=== PATIENT | female | born 1960 | race Caucasian/White ===

== ENCOUNTER 2018-06-15 21:25 | Inpatient (IN) | payer OTHER ==
[~2018-06-15] VITALS: Ht 162.6 cm; Wt 52.6 kg
[2018-06-15 22:12] LABS: UA SPECIFIC GRAVITY >=1.030 (1.005-1.035); microscopic required? YES; urine erythrocyte TRACE (NEGATIVE)
[2018-06-15 22:13] VITALS: BP 127/75
[2018-06-15 22:19] LABS: BASOPHIL % 0.3 % (0-2); PLATELET COUNT 328 x10^3mcL (130-400); RED CELL DISTRIBUTION WIDTH 14.3 % (11.5-14.5)
[2018-06-15 22:21] LABS: CALCIUM 9.2 mg/dL (8.5-10.1); CARBON DIOXIDE 21.6 mmol/L (21-32); CHLORIDE SERUM 115 mmol/L (98-107); CREATININE SERUM 2.7 mg/dL (0.6-1.0); GFR1 19 mL/min; GLUCOSE SERUM 103 mg/dL (74-106); POTASSIUM SERUM 4.1 mmol/L (3.5-5.1); SODIUM SERUM 147 mmol/L (136-145)
[2018-06-15 22:27] LABS: ALBUMIN 3.5 g/dL (3.4-5.0); ALKALINE PHOSPHATASE 139 U/L (46-116); ALT/SGPT 57 U/L (14-59); AST/SGOT 66 U/L (15-37); BILIRUBIN TOTAL 1.1 mg/dL (0.20-1.00); TOTAL PROTEIN, SERUM 6.5 g/dL (6.4-8.2)
[2018-06-15 22:28] LABS: AMPHETAMINE QUAL UR NONE DETECTED (See below)
[2018-06-16] VITALS (18 sets, daily range): BP systolic 82–137; BP diastolic 59–84
[2018-06-16 02:16] LABS: MAGNESIUM 2.1 mg/dL (1.8-2.4); PHOSPHOROUS 5.7 mg/dL (2.5-4.9)
[2018-06-16 02:27] LABS: FREE T4 1.24 ng/dL (0.76-1.46); FREE THYROXINE INDEX 2.6 ug/dL (1.4-4.5); T4(THYROXINE) 7.5 ug/dL (4.7-13.3)
[2018-06-16 02:40] LABS: T3 TOTAL 0.51 ng/mL
[2018-06-16 05:34] LABS: BASOPHIL % 0.5 % (0-2); PLATELET COUNT 332 x10^3mcL (130-400)
[2018-06-16 05:56] LABS: CALCIUM 8.1 mg/dL (8.5-10.1); CARBON DIOXIDE 22.6 mmol/L (21-32); PHOSPHOROUS 4.4 mg/dL (2.5-4.9); POTASSIUM SERUM 4.2 mmol/L (3.5-5.1)
[2018-06-17] VITALS (14 sets, daily range): BP systolic 99–148; BP diastolic 55–96
[2018-06-17 05:22] LABS: CARBON DIOXIDE 21.4 mmol/L (21-32); CREATININE SERUM 1.1 mg/dL (0.6-1.0); MAGNESIUM 1.8 mg/dL (1.8-2.4); PHOSPHOROUS 2.5 mg/dL (2.5-4.9); POTASSIUM SERUM 3.5 mmol/L (3.5-5.1)
[2018-06-17 05:53] LABS: BASOPHIL % 0.5 % (0-2); PLATELET COUNT 253 x10^3mcL (130-400); RED CELL DISTRIBUTION WIDTH 14.1 % (11.5-14.5)
[2018-06-18] VITALS (13 sets, daily range): BP systolic 115–171; BP diastolic 67–105
[2018-06-18 05:34] LABS: PLATELET COUNT 268 x10^3mcL (130-400); RED CELL DISTRIBUTION WIDTH 13.7 % (11.5-14.5)
[2018-06-18 05:48] LABS: ALBUMIN 2.2 g/dL (3.4-5.0); ALKALINE PHOSPHATASE 100 U/L (46-116); ALT/SGPT 43 U/L (14-59); AST/SGOT 42 U/L (15-37); BILIRUBIN TOTAL 0.33 mg/dL (0.20-1.00); CARBON DIOXIDE 26.3 mmol/L (21-32); CHLORIDE SERUM 114 mmol/L (98-107); CREATININE SERUM 0.8 mg/dL (0.6-1.0); GFR1 > 60 mL/min; GLUCOSE SERUM 94 mg/dL (74-106); MAGNESIUM 1.8 mg/dL (1.8-2.4); PHOSPHOROUS 2.4 mg/dL (2.5-4.9); POTASSIUM SERUM 3.3 mmol/L (3.5-5.1); SODIUM SERUM 150 mmol/L (136-145); TOTAL PROTEIN, SERUM 5.5 g/dL (6.4-8.2)
[2018-06-18 05:53] LABS: BAND NEUTROPHIL 7 % (0-10); MONOCYTE 11 % (0-7); SEGMENTED NEUTROPHILS 69 % (37-75)
[2018-06-18 05:54] LABS: PLATELET MORPHOLOGY PLATELETS NORMAL; rbc morphology (normal/abnorm) NORMAL (NORMAL)
[2018-06-19] VITALS (7 sets, daily range): BP systolic 124–159; BP diastolic 78–107; Ht 162.6 cm; Wt 52.6 kg
[2018-06-19 05:58] LABS: ALKALINE PHOSPHATASE 103 U/L (46-116); ALT/SGPT 44 U/L (14-59); AST/SGOT 43 U/L (15-37); BILIRUBIN TOTAL 0.49 mg/dL (0.20-1.00); CALCIUM 8.4 mg/dL (8.5-10.1); CHLORIDE SERUM 110 mmol/L (98-107); CREATININE SERUM 0.9 mg/dL (0.6-1.0); GFR1 > 60 mL/min; GLUCOSE SERUM 92 mg/dL (74-106); MAGNESIUM 1.8 mg/dL (1.8-2.4); PHOSPHOROUS 3.2 mg/dL (2.5-4.9); POTASSIUM SERUM 3.4 mmol/L (3.5-5.1); SODIUM SERUM 146 mmol/L (136-145); TOTAL PROTEIN, SERUM 6.3 g/dL (6.4-8.2)
[2018-06-19 05:59] LABS: ALBUMIN 2.7 g/dL (3.4-5.0)
[2018-06-19 07:10] LABS: RED CELL DISTRIBUTION WIDTH 12.7 % (11.5-14.5)
[2018-06-19 07:38] LABS: PLATELET COUNT 331 x10^3mcL (130-400)
[2018-06-19 12:38] LABS: BAND NEUTROPHIL 5 % (0-10); MONOCYTE 10 % (0-7); SEGMENTED NEUTROPHILS 71 % (37-75); rbc morphology (normal/abnorm) NORMAL (NORMAL)
[2018-06-19 12:39] LABS: PLATELET MORPHOLOGY PLATELETS NORMAL
[2018-06-20 06:41] VITALS: BP 141/86
[2018-06-20 07:11] LABS: BASOPHIL % 0.4 % (0-2); PLATELET COUNT 319 x10^3mcL (130-400); RED CELL DISTRIBUTION WIDTH 13.3 % (11.5-14.5)
[2018-06-20 07:14] LABS: ALKALINE PHOSPHATASE 113 U/L (46-116); ALT/SGPT 41 U/L (14-59); AST/SGOT 39 U/L (15-37); BILIRUBIN TOTAL 0.33 mg/dL (0.20-1.00); CALCIUM 8.9 mg/dL (8.5-10.1); CARBON DIOXIDE 24.5 mmol/L (21-32); CHLORIDE SERUM 102 mmol/L (98-107); CREATININE SERUM 0.7 mg/dL (0.6-1.0); GFR1 > 60 mL/min; GLUCOSE SERUM 94 mg/dL (74-106); POTASSIUM SERUM 3.6 mmol/L (3.5-5.1); SODIUM SERUM 141 mmol/L (136-145); TOTAL PROTEIN, SERUM 7.8 g/dL (6.4-8.2)
[2018-06-20 07:15] LABS: ALBUMIN 3.1 g/dL (3.4-5.0)
[2018-06-20 16:32] VITALS: BP 158/88
[2018-06-20 20:29] VITALS: BP 143/89
[2018-06-21 05:33] VITALS: BP 139/80
[2018-06-21 06:53] LABS: CARBON DIOXIDE 23.9 mmol/L (21-32); CHLORIDE SERUM 99 mmol/L (98-107); GFR1 > 60 mL/min; GLUCOSE SERUM 84 mg/dL (74-106); POTASSIUM SERUM 3.4 mmol/L (3.5-5.1); SODIUM SERUM 137 mmol/L (136-145)
[2018-06-21 06:59] LABS: PLATELET COUNT 386 x10^3mcL (130-400); RED CELL DISTRIBUTION WIDTH 13.2 % (11.5-14.5)
[2018-06-21 12:31] LABS: BAND NEUTROPHIL 0 % (0-10); BASOPHIL 0 % (0-2); MONOCYTE 15 % (0-7); SEGMENTED NEUTROPHILS 77 % (37-75)
[2018-06-21 12:32] LABS: PLATELET MORPHOLOGY PLATELETS NORMAL; rbc morphology (normal/abnorm) ABNORMAL (NORMAL)
[2018-06-21] MEDS ORDERED: NOR5 PO (13:14)
[2018-06-21] MEDS ORDERED: AUGMENTIN 875-1 EACH PO (13:15)
[2018-06-21 13:27] VITALS: BP 132/91
[2018-06-21 17:00] VITALS: BP 151/100
== END 2018-06-21 17:21 | disposition home health service (06) | DRG 208 ==
LOC: ED 21:25 → DU 06-16 00:07 → IC 06-16 00:07 → DU 06-19 10:49
PROVIDERS: Emergency Medicine; Internal Medicine; Internal Medicine Pulmonary Disease
PROC: 5A1945Z Respiratory Ventilation, 24-96 Consecutive Hours (ICD-10-PCS; principal; 2018-06-15)
PROC: 0BH17EZ Insertion of Endotracheal Airway into Trachea, Via Natural or Artificial Opening (ICD-10-PCS; 2018-06-15)
DX: J69.0 Pneumonitis due to inhalation of food and vomit (principal); N17.0 Acute kidney failure with tubular necrosis; J96.01 Acute respiratory failure with hypoxia; G92 Toxic encephalopathy; E87.0 Hyperosmolality and hypernatremia; E87.2 Acidosis; M62.82 Rhabdomyolysis; T42.4X4A Poisoning by benzodiazepines, undetermined, initial encounter; T40.2X4A Poisoning by other opioids, undetermined, initial encounter; I12.9 Hypertensive chronic kidney disease with stage 1 through stage 4 chronic kidney disease, or unspecified chronic kidney disease; N18.9 Chronic kidney disease, unspecified; R54 Age-related physical debility; F32.9 Major depressive disorder, single episode, unspecified; E83.39 Other disorders of phosphorus metabolism; G35 Multiple sclerosis; R74.0 Nonspecific elevation of levels of transaminase and lactic acid dehydrogenase [LDH]; Z68.23 Body mass index [BMI] 23.0-23.9, adult; Y92.009 Unspecified place in unspecified non-institutional (private) residence as the place of occurrence of the external cause
CPT/HCPCS: 31500; 36600; 83880; 84439; 97110-GP; 97116-GP; A4628; G0480; J0696; J1644; J2060; J2310; J2543; J2704; J3475; J3480; J3490; J7030; J7040; J7120; J7620; Q0092

== ENCOUNTER 2019-06-04 19:35 | Observation (INO) | payer OTHER ==
[~2019-06-04] VITALS: Ht 162.6 cm; Wt 55.4 kg
[~2019-06-04 19:35] MED LIST: AUGMENTIN 875-1 EACH PO; NOR5 PO
[2019-06-04 20:27] LABS: BASOPHIL % 0.2 % (0-2); PLATELET COUNT 302 x10^3mcL (130-400); RED CELL DISTRIBUTION WIDTH 13.9 % (11.5-14.5)
[2019-06-04 20:54] LABS: ALBUMIN 3.4 g/dL (3.4-5.0); ALKALINE PHOSPHATASE 65 U/L (46-116); ALT/SGPT 58 U/L (14-59); AST/SGOT 74 U/L (15-37); BILIRUBIN TOTAL 0.4 mg/dL (0.20-1.00); CALCIUM 8.2 mg/dL (8.5-10.1); CARBON DIOXIDE 22.7 mmol/L (21-32); CHLORIDE SERUM 102 mmol/L (98-107); CHOLESTEROL 175 mg/dL (<200); CREATININE SERUM 1.9 mg/dL (0.6-1.0); GFR1 29 mL/min; GLUCOSE SERUM 94 mg/dL (74-106); HDL CHOLESTEROL 51 mg/dL (40-60); LIPASE 366 IU/L (73-393); MAGNESIUM 1.8 mg/dL (1.8-2.4); SODIUM SERUM 141 mmol/L (136-145); T4(THYROXINE) 7.9 ug/dL (4.7-13.3); TOTAL PROTEIN, SERUM 6.4 g/dL (6.4-8.2)
[2019-06-04 20:58] LABS: microscopic required? NO
[2019-06-04 21:08] LABS: POTASSIUM SERUM 2.9 mmol/L (3.5-5.1)
[2019-06-04 21:11] LABS: urine erythrocyte NEGATIVE (NEGATIVE)
[2019-06-04 21:22] LABS: AMPHETAMINE QUAL UR NONE DETECTED (See below)
[2019-06-04 23:40] VITALS: BP 108/80
[2019-06-05] VITALS (7 sets, daily range): BP systolic 102–141; BP diastolic 49–99; Ht 162.6 cm; Wt 55.4 kg
[2019-06-05] MEDS ORDERED: BACLOFEN20 MG PO (00:12)
[2019-06-05] MEDS ORDERED: AMITRIPTYLINE H50 MG PO (00:12)
[2019-06-05] MEDS ORDERED: TECFIDERA240 MG PO (00:12)
[2019-06-05] MEDS ORDERED: PROPRANOLOL HCL20 MG PO (00:13)
[2019-06-05] MEDS ORDERED: TRAZODONE50 M1 PO (00:14)
[2019-06-05] MEDS ORDERED: D3 20002000 IU PO (00:14)
[2019-06-05] MEDS ORDERED: LYRICA50 M1 PO (00:14)
[2019-06-05 05:40] LABS: BASOPHIL % 0.2 % (0-2); PLATELET COUNT 302 x10^3mcL (130-400); RED CELL DISTRIBUTION WIDTH 14.3 % (11.5-14.5)
[2019-06-05 05:46] LABS: CALCIUM 7.8 mg/dL (8.5-10.1); CARBON DIOXIDE 25.2 mmol/L (21-32); CREATININE SERUM 1.3 mg/dL (0.6-1.0); POTASSIUM SERUM 3.8 mmol/L (3.5-5.1)
[2019-06-06 05:55] VITALS: BP 150/87
[2019-06-06 07:07] LABS: BASOPHIL % 0.8 % (0-2); PLATELET COUNT 342 x10^3mcL (130-400); RED CELL DISTRIBUTION WIDTH 14.1 % (11.5-14.5)
[2019-06-06 07:16] LABS: ALKALINE PHOSPHATASE 49 U/L (46-116); ALT/SGPT 40 U/L (14-59); AST/SGOT 35 U/L (15-37); BILIRUBIN TOTAL 0.33 mg/dL (0.20-1.00); CALCIUM 8.1 mg/dL (8.5-10.1); CARBON DIOXIDE 25.4 mmol/L (21-32); CHLORIDE SERUM 108 mmol/L (98-107); CREATININE SERUM 0.7 mg/dL (0.6-1.0); GFR1 > 60 mL/min; GLUCOSE SERUM 84 mg/dL (74-106); MAGNESIUM 1.8 mg/dL (1.8-2.4); POTASSIUM SERUM 3.2 mmol/L (3.5-5.1); SODIUM SERUM 143 mmol/L (136-145)
[2019-06-06 07:18] LABS: ALBUMIN 2.9 g/dL (3.4-5.0); TOTAL PROTEIN, SERUM 5.7 g/dL (6.4-8.2)
[2019-06-06 08:59] VITALS: BP 131/74
[2019-06-06] MEDS ORDERED: MORPHINE SULFAT30 M2 PO (09:25)
[2019-06-06 09:26] VITALS: BP 134/76
[2019-06-06 12:08] VITALS: BP 127/86; BP 97/55
[2019-06-06 12:15] VITALS: BP 117/75
== END 2019-06-06 12:30 | disposition home or self-care (01) | DRG 917 ==
LOC: ED 19:35 → DU 22:09 → IC 22:09 → DU 23:16 → IC 06-05 00:48 → DU 06-05 01:04 → IC 06-05 01:05 → DU 06-05 20:53
PROVIDERS: Emergency Medicine; Internal Medicine Nephrology; ADMIT Internal Medicine Pulmonary Disease
DX: T42.4X1A Poisoning by benzodiazepines, accidental (unintentional), initial encounter (principal); G92 Toxic encephalopathy; N17.9 Acute kidney failure, unspecified; E87.0 Hyperosmolality and hypernatremia; T40.2X1A Poisoning by other opioids, accidental (unintentional), initial encounter; G89.4 Chronic pain syndrome; G35 Multiple sclerosis; G40.909 Epilepsy, unspecified, not intractable, without status epilepticus; Z79.891 Long term (current) use of opiate analgesic; Z68.21 Body mass index [BMI] 21.0-21.9, adult; F17.210 Nicotine dependence, cigarettes, uncomplicated
CPT/HCPCS: 36600; 82962; 90715; 99406; G0378; G0480; J1644; J2310; J2543; J3411; J3475; J3480; J3490; J7030; J7042; Q0092

== ENCOUNTER 2019-06-18 12:57 | Inpatient (IN) | payer OTHER ==
[~2019-06-18] VITALS: Ht 162.6 cm; Wt 51.3 kg
[~2019-06-18 12:57] MED LIST changes: +AMITRIPTYLINE H50 MG PO; +BACLOFEN20 MG PO; +D3 20002000 IU PO; +LYRICA50 M1 PO; +MORPHINE SULFAT30 M2 PO; +PROPRANOLOL HCL20 MG PO; +TECFIDERA240 MG PO; +TRAZODONE50 M1 PO
[2019-06-18 13:05] VITALS: Ht 162.6 cm; Wt 51.3 kg
[2019-06-18 14:02] LABS: CALCIUM 8.5 mg/dL (8.5-10.1); CARBON DIOXIDE 22.7 mmol/L (21-32); CHLORIDE SERUM 107 mmol/L (98-107); CREATININE SERUM 1.1 mg/dL (0.6-1.0); GFR1 54 mL/min; GLUCOSE SERUM 92 mg/dL (74-106); POTASSIUM SERUM 5.4 mmol/L (3.5-5.1); SODIUM SERUM 140 mmol/L (136-145)
[2019-06-18 14:05] LABS: BASOPHIL % 0.8 % (0-2); RED CELL DISTRIBUTION WIDTH 13.7 % (11.5-14.5)
[2019-06-18 14:06] LABS: ALBUMIN 3.9 g/dL (3.4-5.0); ALKALINE PHOSPHATASE 79 U/L (46-116); ALT/SGPT 32 U/L (14-59); AST/SGOT 27 U/L (15-37); BILIRUBIN TOTAL 0.2 mg/dL (0.20-1.00); MAGNESIUM 1.5 mg/dL (1.8-2.4); TOTAL PROTEIN, SERUM 7.1 g/dL (6.4-8.2)
[2019-06-18 14:17] LABS: PLATELET COUNT 414 x10^3mcL (130-400)
[2019-06-18 16:33] LABS: microscopic required? YES; urine erythrocyte TRACE (NEGATIVE)
[2019-06-18 16:40] LABS: AMPHETAMINE QUAL UR NONE DETECTED (See below)
[2019-06-18 18:25] VITALS: BP 142/86
[2019-06-19 06:43] VITALS: BP 154/89
[2019-06-19 08:30] VITALS: BP 143/88
[2019-06-19 12:40] VITALS: BP 137/92
[2019-06-19 19:06] VITALS: BP 130/62
[2019-06-19 20:20] VITALS: BP 144/79
[2019-06-20 05:35] VITALS: BP 146/83
[2019-06-20 06:28] LABS: BASOPHIL % 0.1 % (0-2); RED CELL DISTRIBUTION WIDTH 13.4 % (11.5-14.5)
[2019-06-20 06:42] LABS: CALCIUM 8.3 mg/dL (8.5-10.1); CARBON DIOXIDE 25.2 mmol/L (21-32); CHLORIDE SERUM 105 mmol/L (98-107); CREATININE SERUM 0.8 mg/dL (0.6-1.0); GFR1 > 60 mL/min; GLUCOSE SERUM 112 mg/dL (74-106); POTASSIUM SERUM 3.7 mmol/L (3.5-5.1); SODIUM SERUM 139 mmol/L (136-145)
[2019-06-20 07:06] LABS: PLATELET COUNT 441 x10^3mcL (130-400)
[2019-06-20 08:47] VITALS: BP 139/86
[2019-06-20 13:17] VITALS: BP 155/90
[2019-06-20 22:16] VITALS: BP 157/95
[2019-06-21 05:45] VITALS: BP 153/95
[2019-06-21 06:32] LABS: RED CELL DISTRIBUTION WIDTH 14.4 % (11.5-14.5)
[2019-06-21 06:37] LABS: BASOPHIL % 0 % (0-2); PLATELET COUNT 448 x10^3mcL (130-400)
[2019-06-21 07:03] LABS: CALCIUM 8.6 mg/dL (8.5-10.1); CARBON DIOXIDE 25.3 mmol/L (21-32); CHLORIDE SERUM 101 mmol/L (98-107); CREATININE SERUM 0.7 mg/dL (0.6-1.0); GFR1 > 60 mL/min; GLUCOSE SERUM 113 mg/dL (74-106); SODIUM SERUM 137 mmol/L (136-145)
[2019-06-21 08:33] VITALS: BP 161/95
[2019-06-21 12:33] VITALS: BP 149/88
[2019-06-21] MEDS ORDERED: KEFLEX500 M1 PO (13:46)
[2019-06-21 18:06] VITALS: BP 150/96
[2019-06-22 05:24] VITALS: BP 142/77
[2019-06-22 13:23] VITALS: BP 147/68
[2019-06-22 14:08] VITALS: BP 150/87
== END 2019-06-22 14:39 | disposition home health service (06) | DRG 602 ==
LOC: ED 12:57 → DU 17:03
PROVIDERS: Emergency Medicine; Internal Medicine; ADMIT Internal Medicine Pulmonary Disease
DX: L02.31 Cutaneous abscess of buttock (principal); G93.41 Metabolic encephalopathy; E46 Unspecified protein-calorie malnutrition; Z68.1 Body mass index [BMI] 19.9 or less, adult; L03.317 Cellulitis of buttock; E87.5 Hyperkalemia; E83.42 Hypomagnesemia; R54 Age-related physical debility; I10 Essential (primary) hypertension; G35 Multiple sclerosis
CPT/HCPCS: 97116-GP; 97530-GP; G0378; G0480; J1650; J1956; J2060; J2270; J2310; J2405; J2930; J3475; J7042; Q0092; Q9967